=== PATIENT | female | born 1965 | race Caucasian/White ===

== ENCOUNTER 2022-05-14 13:27 | Outpatient (CLI) | payer BC, OTHER | END 2022-05-14 13:28 | disposition home or self-care (01) | LOC: DTY/OP 13:27 | PROVIDERS: ATTEND Surgery | DX: E66.01 Morbid (severe) obesity due to excess calories (principal) | CPT/HCPCS: 97802 ==

== ENCOUNTER 2022-07-24 16:30 | Inpatient (IN) | payer OTHER ==
[2022-09-30] MEDS ORDERED: Bupivacaine/Epinephrine 0.25% 30 ML VIAL ONE (06:40)
[2022-09-30] MEDS ORDERED: SUGAMMADEX SODIUM 200 MG/2 ML VIAL ONE (06:45)
[2022-09-30] MEDS ORDERED: fentaNYL PF 100 MCG/2 ML SYRINGE ONE (06:45)
[2022-09-30] MEDS ORDERED: Heparin 5,000 UNITS/ML VIAL ONE (06:50)
[2022-09-30] MEDS ORDERED: Rocuronium Bromide 10 MG/ML (10ML VIAL) ONE (06:58)
[2022-09-30] MEDS ORDERED: Bupivacaine 0.25% HCL 30 ML VIAL ONE (06:58)
[2022-09-30] MEDS ORDERED: Dexamethasone 20 MG/5 ML VIAL ONE (06:58)
[2022-09-30] MEDS ORDERED: Ondansetron PF 4 MG/2 ML Vial ONE (06:58)
[2022-09-30] MEDS ORDERED: PROPOFOL 200 MG/20 ML VIAL ONE (06:58)
[2022-09-30] MEDS ORDERED: Midazolam HCl 2 mg/2 ml Vial ONE (07:11)
[2022-09-30] MEDS ORDERED: CEFAZOLIN 2 GM VIAL ONE (07:13)
[2022-09-30] MEDS ORDERED: Sodium Chloride 0.9% 100 ML ONE (07:13)
[2022-09-30 07:36] LABS: SARS-CoV-2 NAA Rapid Test Not Detected (NotDetected)
[2022-09-30] MEDS ORDERED: Promethazine HCl 25 MG/ML VIAL IM PRN ×3 (08:07→09:44)
[2022-09-30] MEDS ORDERED: Ondansetron HCl/PF 4 MG/2 ML Vial IVP PRN (08:07)
[2022-09-30] MEDS ORDERED: Hydrocodone-Acetamin 15 ML UDCUP PO PRN (09:28)
[2022-09-30] MEDS ORDERED: hydrALAZINE 20 MG/ML VIAL SLOW IVP PRN (09:28)
[2022-09-30] MEDS ORDERED: Dextrose 50% Abboject 50 ML SYRINGE SLOW IVP PRN (09:28)
[2022-09-30] MEDS ORDERED: Ondansetron PF 4 MG/2 ML Vial IVP PRN ×2 (09:28→09:44)
[2022-09-30] MEDS ORDERED: diphenhydrAMINE 50 MG/ML VIAL IVP PRN ×2 (09:28→09:44)
[2022-09-30] MEDS ORDERED: Ipratropium/Albuterol 3 ML NEB NEB PRN (09:28)
[2022-09-30] MEDS ORDERED: Dextrose 5% in Water 1,000 ML IV PRN (09:28)
[2022-09-30] MEDS ORDERED: FENTANYL 500 MCG/10 ML VIAL 2,000 MCG in Sodium Chloride 0.9% 60 ML IV PRN (09:44)
[2022-09-30] MEDS ORDERED: diphenhydrAMINE 50 MG/ML VIAL IM PRN (09:44)
[2022-09-30] MEDS ORDERED: Naloxone HCl 0.4 mg/ml Vial IV PRN (09:44)
[2022-09-30] MEDS ORDERED: Zolpidem Tartrate 5 MG TAB PO PRN (09:44)
[2022-09-30] MEDS ORDERED: diphenhydrAMINE 25 MG CAP PO PRN (09:44)
[2022-09-30] MEDS ORDERED: Communication Order-Pharmacy FS SCH (09:45)
[2022-09-30] MEDS ORDERED: Fentanyl 100 MCG/2 ML VIAL ONE (10:15)
[2022-09-30 14:15] VITALS: BMI 38.0
[2022-09-30] MEDS: D5 1/2 NS w/20 mEq KCL 1,000 ML IV SCH ×2 (19:16→19:17)
[2022-09-30] MEDS ORDERED: ALPRAZolam 0.5 MG TAB PO SCH (21:00)
[2022-10-01] MEDS: D5 1/2 NS w/20 mEq KCL 1,000 ML IV SCH ×3 (00:18→22:44)
[2022-10-01] MEDS ORDERED: Lorazepam 0.5 MG TAB ONE (01:51)
[2022-10-01] MEDS ORDERED: ALPRAZolam 0.5 MG TAB PO SCH ×2 (02:00→14:30)
[2022-10-01] MEDS ORDERED: Hydrocodone-Acetamin 15 ML UDCUP PO PRN (06:10)
[2022-10-01 06:42] LABS: #Lymphocytes 2.5 thou/uL (1.20-3.40); #Monocytes 0.8 thou/uL (0.11-0.59); %Basophils 0.2 % (0.0-1.0); %Eosinophils 0.2 % (0.0-10.0); %Monocytes 7.4 % (0.0-10.0); %Neutrophils 68.1 % (42.0-75.0); Hemoglobin 11.1 g/dL (12.0-16.0); Mean Corpuscular HGB CONC 32.9 g/dL (32.0-36.0); Mean Corpuscular Hemoglobin 33.2 pg (27.0-31.0); Mean Platelet Volume 9.1 fL (7.4-10.4); Platelet Count 260 10x3/uL (130-400); RBC Distribution Width 12.6 % (11.5-14.5); Red Blood Cell (RBC) Count 3.34 mill/uL (4.20-5.40); White Blood Cell (WBC) Count 10.2 10x3/uL (4.8-10.8)
[2022-10-01 06:57] LABS: Anion Gap 13 mmol/L (10-20); BUN (Urea Nitrogen) 6 mg/dL (9.8-20.1); Calc. Creatinine Clearance 129 mL/min (70-130); Calcium 8.6 mg/dL (7.8-10.44); Carbon Dioxide 23 mmol/L (22-29); Chloride 107 mmol/L (98-107); Estimated GFR 96; Glucose 130 mg/dL (70-105); Potassium 3.9 mmol/L (3.5-5.1); Sodium 139 mmol/L (136-145)
[2022-10-01] MEDS: Pantoprazole 40 MG VIAL IVP SCH (08:37)
[2022-10-01] MEDS ORDERED: Levothyroxine Sodium 50 MCG TAB PO SCH (14:30)
[2022-10-01] MEDS: ALPRAZolam 0.5 MG TAB PO SCH (23:03)
[2022-10-02] MEDS: D5 1/2 NS w/20 mEq KCL 1,000 ML IV SCH (01:18)
[2022-10-02] MEDS ORDERED: Levothyroxine Sodium 50 MCG TAB PO SCH (06:00)
[2022-10-02 08:11] VITALS: BP 104/70; TEMP 98.2
[2022-10-02] MEDS: ALPRAZolam 0.5 MG TAB PO SCH (08:48)
[2022-10-02] MEDS: Pantoprazole 40 MG VIAL IVP SCH (08:48)
== END 2022-10-02 10:00 | disposition home or self-care (01) | DRG 621 ==
LOC: SURG A 09-30 05:57
PROVIDERS: ADMIT Surgery; ATTEND Surgery
PROC: 0DB64Z3 Excision of Stomach, Percutaneous Endoscopic Approach, Vertical (ICD-10-PCS; principal; 2022-09-30)
PROC: 0DP64CZ Removal of Extraluminal Device from Stomach, Percutaneous Endoscopic Approach (ICD-10-PCS; 2022-09-30)
PROC: 8E0W4CZ Robotic Assisted Procedure of Trunk Region, Percutaneous Endoscopic Approach (ICD-10-PCS; 2022-09-30)
DX: E66.01 Morbid (severe) obesity due to excess calories (principal); T85.858A Stenosis due to other internal prosthetic devices, implants and grafts, initial encounter; Z20.822 Contact with and (suspected) exposure to COVID-19; F41.9 Anxiety disorder, unspecified; E78.00 Pure hypercholesterolemia, unspecified; E03.9 Hypothyroidism, unspecified; Z68.41 Body mass index [BMI] 40.0-44.9, adult; Z88.8 Allergy status to other drugs, medicaments and biological substances; Z79.890 Hormone replacement therapy; Z79.899 Other long term (current) drug therapy
CPT/HCPCS: 36415; 80048; 85025; 88307; 94760; C9113; J1100; J1644; J1650; J2250; J2405; J2704; J3010; J3480; J3490; S0020; U0002

== ENCOUNTER 2022-09-16 15:34 | Outpatient (CLI) | payer SELFPAY ==
[2022-09-16 16:35] LABS: #Basophils 0.1 10x3/uL (0.0-0.2); #Eosinphils 0.2 10x3/uL (0.0-0.5); #Monocytes 0.6 10x3/uL (0.0-1.1); #Neutrophils 6.3 10x3/uL (1.5-8.4); %Basophils 0.5 % (0.0-2.0); %Eosinophils 1.5 % (0.0-6.0); %Lymphocytes 29.1 % (18.0-47.0); %Monocytes 5.7 % (0.0-10.0); %Neutrophils 62.9 % (40.0-75.0); Mean Corpuscular Hemoglobin 32.5 pg (27.0-33.0); Mean Corpuscular Volume 98.5 fl (81.6-98.3); Mean Platelet Volume 10.4 fl (7.4-10.4); Platelet Count 313 10x3/uL (150-450); RBC Distribution Width 13.6 % (11.5-14.5)
[2022-09-16 17:07] LABS: ALT (SGPT) 25 U/L (8-55); AST (SGOT) 20 U/L (5-34); Alkaline Phosphatase 80 U/L (40-110); Anion Gap 15 mmol/L (10-20); BUN (Urea Nitrogen) 22 mg/dL (9.8-20.1); Bilirubin, Total 0.4 mg/dL (0.2-1.2); Calc. Creatinine Clearance 0 mL/min (70-130); Carbon Dioxide 21 mmol/L (22-29); Chloride 106 mmol/L (98-107); Estimated GFR 71; Globulin 2.9 g/dL (2.4-3.5); Glucose 84 mg/dL (70-105); Potassium 4.3 mmol/L (3.5-5.1); Protein, Total 6.9 g/dL (6.0-8.3); Sodium 138 mmol/L (136-145)
[2022-09-16 20:15] LABS: Hemoglobin A1c 5.4 % (4.0-6.0)
== END 2022-09-16 15:35 | disposition home or self-care (01) ==
LOC: LABBT 15:34
PROVIDERS: ATTEND Surgery
DX: Z01.818 Encounter for other preprocedural examination (principal); E66.01 Morbid (severe) obesity due to excess calories; T85.858A Stenosis due to other internal prosthetic devices, implants and grafts, initial encounter
CPT/HCPCS: 71046; 80053; 83036; 85025; 93005; 93010